=== PATIENT | male | born 1980 | race Caucasian/White ===

== ENCOUNTER 2020-03-30 11:11 | Emergency (ER) | payer MEDICARE, OTHER ==
[~2020-03-30] VITALS: Ht 175.3 cm; Wt 76.2 kg
[2020-03-30 11:25] VITALS: BP 132/78
[2020-03-30 12:09] LABS: BASOPHILS % (AUTO) 1 % (0-1); EOSINOPHILS % (AUTO) 2 % (1-7); LYMPHOCYTES % (AUTO) 28 % (22-44); MD NO; MEAN CORPUSCULAR HEMOGLOBIN 31.2 pg (27.5-34.5); MEAN PLATELET VOLUME 7.8 fL (7.4-10.4); MONOCYTES % (AUTO) 9 % (2-9); NEUTROPHILS % (AUTO) 61 % (42-75); PLATELET COUNT 182 x10^3/uL (130-400); RED BLOOD COUNT 4.77 x10^6/uL (4.38-5.82); RED CELL DISTRIBUTION WIDTH 13.4 % (9.4-14.8)
[2020-03-30 12:26] LABS: ALBUMIN 3.7 g/dL (3.4-5.0); CHLORIDE 112 mmol/L (98-107)
[2020-03-30 12:28] LABS: ANION GAP 3 mmol/L (5-15); CREATININE 0.88 mg/dL (0.7-1.3)
[2020-03-30 12:31] LABS: SALICYLATE LEVEL < 1.7 mg/dL (2.8-20.0)
--- NOTE | 2020-03-30 13:01 | NUR ---
PT LUNCH TRAY DELIVERED. NAD. ALL NEEDS MET AT THIS TIME.
[2020-03-30 13:36] LABS: AMPHETAMINE SCREEN, URINE Negative (Negative); BARBITURATE SCREEN, URINE Negative (Negative); BENZODIAZEPINE SCREEN, URINE Negative (Negative); CANNABINOID SCREEN, URINE Negative (Negative); COCAINE SCREEN, URINE Negative (Negative); METHADONE SCREEN, URINE Negative (Negative); OPIATE SCREEN, URINE Negative (Negative)
--- NOTE | 2020-03-30 14:47 | NUR ---
REPORT TO [facility]
[2020-03-30] MEDS ORDERED: LITH300C PO (16:21)
[2020-03-30] MEDS ORDERED: RISP3TAB24 PO (16:21)
[2020-03-30] MEDS ORDERED: PROP20TA PO (16:21)
[2020-03-30] MEDS ORDERED: MELA5TAB21 PO (16:21)
[2020-03-30] MEDS ORDERED: HYDR50CA PO (16:21)
== END 2020-03-30 15:45 | disposition other institution (70) ==
LOC: ED 14:39
DX: F31.9 Bipolar disorder, unspecified (principal); Z20.822 Contact with and (suspected) exposure to COVID-19
CPT/HCPCS: 36415; 80048; 80178; 80299; 80307; 80320; 80329; 82040; 85025; 87635; 99284; G0480